=== PATIENT | female | born 1945 | race Caucasian/White ===

== ENCOUNTER 2016-04-30 16:25 | Emergency (ER) | payer MEDICARE ==
[~2016-04-30] VITALS: Ht 147.3 cm; Wt 41.0 kg
[~2016-04-30 16:25] MED LIST: ACET325S8 PO; AMBI10TA PO; CIPR500T4 PO; DOCU100S PO; FOLI1 PO; HYDR-3533 PO; METO25 PO; METR500I3 PO; NORC10TA2 PO; ONDA4 PO; PRAV10 PO; ST J81CH PO; XANA0.5T PO
[2016-04-30 16:28] VITALS: BP 136/62; PULSE 68; RESP 16; TEMP 98.4; O2SAT 98
[2016-04-30] MEDS ORDERED: ASPI81CH CHEW (17:33)
[2016-04-30] MEDS ORDERED: IMIT50TA PO (17:33)
[2016-04-30] MEDS ORDERED: ALPR.5 PO (17:33)
[2016-04-30] MEDS ORDERED: AMBI10TA PO (17:33)
[2016-04-30] MEDS ORDERED: PRAV20TA2 PO (17:33)
[2016-04-30] MEDS ORDERED: HYDR-3583 PO (17:33)
[2016-04-30] MEDS ORDERED: FOLI800T PO (17:33)
[2016-04-30] MEDS ORDERED: METO25TA3 PO (17:33)
--- NOTE | 2016-04-30 17:51 | PD ---
HPI Chief Complaint: Medication Refill Request Time Seen by Provider: 17:10 Travel History International Travel<30 days: No Contact w/Intl Traveler<30days: No Traveled to known affect area: No History of Present Illness HPI Patient is a 71-year-old female presented to emergency department for a refill of her hydrocodone. Patient states she has scoliosis and has been on hydrocodone 3 times daily for 10 years. Patient states that her primary doctor retired from the first of the year and she has been out of it for approximately 2 weeks. She went to her standards analyst who gave her a prescription for meloxicam. Patient denied any symptoms of withdrawal. She has no new complaints today, no new injuries. PFSH Past Medical History Arthritis: Yes (pheumatoid arthritis) Asthma: No Autoimmune Disease: No Blood Disorders: No Anxiety: Yes Depression: Yes Heart Rhythm Problems: Yes (irregular rhythm post-op period of aortic repair) Cancer: No Cardiac Catheterization: Yes Cardiovascular Problems: Yes (AAA) High Cholesterol: Yes Chest Pain: No Congestive Heart Failure: No COPD: No Cerebrovascular Accident: Yes (possible mini-stroke/stroke [id number] 11/2014) Diminished Hearing: No Endocrine: No Gastrointestinal Disorders: Yes GERD: Yes Genitourinary: No Hiatal Hernia: Yes Hypertension: Yes Immune Disorder: Yes (rheumatoid arthritis) Implanted Vascular Access Dvce: Yes Musculoskeletal: Yes Neurologic: Yes Psychiatric: Yes Reproductive: No Respiratory: Yes Migraines: Yes Seizures: No Sickle Cell Disease: No Sleep Apnea: No Ulcer: No : 2 Para: 2 Tubal Ligation: Yes Past Surgical History Abdominal Surgery: No AICD: No Arteriovenous Shunt: No Body Medical Devices: cardiac stent--PT DENIES Cardiac Surgery: Yes (Nov 2014 - reconstruction of aorta x3) Coronary Artery Bypass Graft: Yes Ear Surgery: No Endocrine Surgery: No Eye Surgery: No Genitourinary Surgery: No Gynecologic Surgery: No Insulin Pump: No Joint Replacement: No Oral Surgery: No Pacemaker: No Thoracic Surgery: Yes Tonsillectomy: Yes Other Surgery: Yes (rt hip abcess) Social History Alcohol Use: No Tobacco Use: No Substance Use: No Allergies-Medications (Allergen,Severity, Reaction): Coded Allergies: No Known Allergies (Unverified , 04/30/16) Reported Meds & Prescriptions Reported Meds & Active Scripts Active Reported Imitrex (Sumatriptan Succinate) 50 Mg Tab 50 Mg PO ONCE PRN If a satisfactory response has not been obtained at 2 hours, a second dose may be administered Xanax (Alprazolam) 0.5 Mg Tab 0.5 Mg PO Q8H PRN Ambien (Zolpidem Tartrate) 10 Mg Tab 10 Mg PO HS PRN Hydrocodone-Acetaminophen 10-325 mg Tab 1 Tab PO Q6H PRN Folic Acid 800 Mcg Tab 800 Mcg PO DAILY Pravastatin 20 Mg Tab 20 Mg PO DAILY Metoprolol Tartrate 25 Mg Tab 25 Mg PO BID Aspirin 81 Mg Chew 81 Mg CHEW DAILY Review of Systems Except as stated in HPI: all other systems reviewed are Neg Musculoskeletal: Positive: Arthralgias (back pain) Physical Exam Narrative GENERAL: Well-nourished, well-developed patient. SKIN: Warm and dry. HEAD: Normocephalic. EYES: No scleral icterus. No injection or drainage. NECK: Supple, trachea midline. No JVD or lymphadenopathy. CARDIOVASCULAR: Regular rate and rhythm without murmurs, gallops, or rubs. RESPIRATORY: Breath sounds equal bilaterally. No accessory muscle use. GASTROINTESTINAL: Abdomen soft, non-tender, nondistended. MUSCULOSKELETAL: No cyanosis, or edema. BACK: Nontender, scoliosis and kyphosis. No CVA tenderness. Data Data Last Documented VS Vital Signs Date Time Temp Pulse Resp B/P Pulse Ox O2 Delivery O2 Flow Rate FiO2 04/30/16 16:28 98.4 68 16 136/62 98 [facility] Medical Decision Making Medical Screen Exam Complete: Yes Emergency Medical Condition: No Medical Record Reviewed: Yes Interpretation(s) Vital Signs Date Time Temp Pulse Resp B/P Pulse Ox O2 Delivery O2 Flow Rate FiO2 04/30/16 16:28 98.4 68 16 136/62 98 Differential Diagnosis Arthritis versus scoliosis versus chronic pain versus other Narrative Course Patient is 71-year-old woman presenting to the emergency department for a refill of her hydrocodone. Patient states she takes 3 times a day for her scoliosis. She has been out for approximately 2 weeks per her report. Patient went to her standards analyst and was given meloxicam. She was advised that she will need to follow up with her standards analyst or with her new primary doctor at the beginning of May to get further refills of her chronic pain medication. Patient appears to be resting comfortably, she was encouraged to trial alternative therapies. She was offered a prescription for naproxen but declined. She was encouraged to return to emergency department for any new symptoms. Patient is stable for discharge. Diagnosis Primary Impression: Chronic back pain Qualified Code: M54.9 - Chronic back pain, unspecified back location, unspecified back pain laterality Referrals: Primary Care Physician Web Assistant Patient Instructions: General Instructions Additional Instructions: Follow-up with your primary doctor Follow-up with her standards analyst Return to emergency department for any new or worsening symptoms Med/Other Pt SpecificInfo: No Change to Meds Disposition: 01 DISCHARGE HOME Condition: Stable Fabrice,Payton GARCIA Apr 30, 2016 17:50
[2016-08-19] MEDS ORDERED: STOO100C PO (12:07)
== END 2016-04-30 18:14 | disposition home or self-care (01) ==
LOC: PHEFT 16:25
DX: M54.9 Dorsalgia, unspecified (principal); M06.9 Rheumatoid arthritis, unspecified; F41.8 Other specified anxiety disorders; E78.00 Pure hypercholesterolemia, unspecified; I10 Essential (primary) hypertension; Z76.0 Encounter for issue of repeat prescription
CPT/HCPCS: 99281

== ENCOUNTER → 2016-06-16 | Outpatient (CLI) | payer MEDICARE ==
[~2016-06-16] MED LIST changes: -ACET325S8 PO; +ALPR.5 PO; +ASPI81CH CHEW; -CIPR500T4 PO; +COLA100C3 PO; -DOCU100S PO; -FOLI1 PO; +FOLI800T PO; -HYDR-3533 PO; +HYDR-3583 PO; +IMIT50TA PO; +LISI2.5T3 PO; +MELO-1 PO; -METO25 PO; +METO25TA3 PO; -METR500I3 PO; +NITR100C4 PO; -NORC10TA2 PO; -ONDA4 PO; -PRAV10 PO; +PRAV20TA2 PO; -ST J81CH PO; +STOO100C PO; +TAMS5CAP PO; -XANA0.5T PO
[2016-06-16 13:53] LABS: ANION GAP 8 MEQ/L (5-15); AST (GOT) 11 U/L (15-37); BICARBONATE 26.3 MEQ/L (21.0-32.0); BLOOD UREA NITROGEN 27 MG/DL (7-18); CHLORIDE 103 MEQ/L (98-107); GLOMERULAR FILTRATION RATE 72 ML/MIN (>89); GLUCOSE,FASTING 78 MG/DL (74-99); POTASSIUM 4.4 MEQ/L (3.5-5.1); SODIUM (NA) 137 MEQ/L (136-145)
[2016-06-16 13:58] LABS: ALKALINE PHOSPHATASE 68 U/L (45-117); ALT (GPT) 10 U/L (10-53); LDL CHOLESTEROL 77 MG/DL (0-99); TOTAL BILIRUBIN ADULT 0.9 MG/DL (0.2-1.0)
== END ==
LOC: PLAB 08:47
PROVIDERS: ATTEND Internal Medicine Interventional Cardiology
DX: I10 Essential (primary) hypertension (principal); E78.2 Mixed hyperlipidemia; I71.2 Thoracic aortic aneurysm, without rupture; Z95.4 Presence of other heart-valve replacement
CPT/HCPCS: 36415; 80053; 80061

== ENCOUNTER 2016-06-22 18:49 | Emergency (ER) | payer MEDICARE ==
[~2016-06-22] VITALS: Ht 147.3 cm; Wt 41.5 kg
[~2016-06-22 18:49] MED LIST changes: -COLA100C3 PO; -LISI2.5T3 PO; -MELO-1 PO; -NITR100C4 PO; -STOO100C PO; -TAMS5CAP PO
[2016-06-22 18:52] VITALS: BP 202/99; PULSE 99; RESP 15; TEMP 98.7; O2SAT 98
[2016-06-22 20:04] VITALS: BP 188/116; PULSE 68; RESP 18; O2SAT 100
[2016-06-22] MEDS ORDERED: SODIUM CHLOR 0.9% 1000 ML INJ 1,000 ML IV SCH (20:08)
[2016-06-22] MEDS ORDERED: COLA100C3 PO (20:09)
[2016-06-22] MEDS ORDERED: LISI2.5T3 PO (20:09)
[2016-06-22] MEDS ORDERED: MELO-1 PO (20:09)
[2016-06-22 20:12] VITALS: O2SAT 100
--- NOTE | 2016-06-22 20:12 | PD ---
HPI Chief Complaint: Abdominal Pain Time Seen by Provider: 20:12 Travel History International Travel<30 days: No Contact w/Intl Traveler<30days: No Traveled to known affect area: No History of Present Illness HPI 71-year-old female with a history of hypertension, hyperlipidemia, chronic back pain, aortic valve replacement to see the emergency department for evaluation of epigastric abdominal pain radiating into the right upper quadrant. Patient states that her symptoms began after eating a hot dog around noon. States that she has a history of gastritis and this feels like a flareup of her gastritis. States that she has not had pain this bad in several years. States that she took Pepcid earlier without relief of symptoms. Describes the pain as a burning sharp pain. Symptoms are moderate in severity. Possibly aggravated with eating. Denies any alleviating factors. She complains of associated nausea but no vomiting. Denies fever, chills, diarrhea, constipation, chest pain, shortness of breath, lightheadedness, dizziness. Prior abdominal surgeries include abdominal aortic aneurysm stent. PCP Dr. Sarah. No other complaints. PFSH Past Medical History Arthritis: Yes (pheumatoid arthritis) Asthma: No Autoimmune Disease: No Blood Disorders: No Anxiety: Yes Depression: Yes Heart Rhythm Problems: Yes (irregular rhythm post-op period of aortic repair) Cancer: No Cardiac Catheterization: Yes Cardiovascular Problems: Yes High Cholesterol: Yes Chest Pain: No Congestive Heart Failure: No COPD: No Cerebrovascular Accident: Yes Diminished Hearing: No Endocrine: No Gastrointestinal Disorders: Yes GERD: Yes Genitourinary: No Hiatal Hernia: Yes Hypertension: Yes Immune Disorder: Yes (rheumatoid arthritis) Implanted Vascular Access Dvce: Yes Musculoskeletal: Yes Neurologic: Yes Psychiatric: Yes Reproductive: No Respiratory: Yes Migraines: Yes Seizures: No Sickle Cell Disease: No Sleep Apnea: No Ulcer: No Tetanus Vaccination: < 5 Years Influenza Vaccination: Yes : 2 Para: 2 Tubal Ligation: Yes Past Surgical History Abdominal Surgery: No AICD: No Arteriovenous Shunt: No Body Medical Devices: cardiac stent--PT DENIES Cardiac Surgery: Yes (Nov 2014 - reconstruction of aorta x3; valve replacement ) Coronary Artery Bypass Graft: Yes Ear Surgery: No Endocrine Surgery: No Eye Surgery: No Genitourinary Surgery: No Gynecologic Surgery: No Insulin Pump: No Joint Replacement: No Oral Surgery: No Pacemaker: No Thoracic Surgery: Yes Tonsillectomy: Yes Other Surgery: Yes (rt hip abcess) Social History Alcohol Use: No Tobacco Use: No Substance Use: No Allergies-Medications (Allergen,Severity, Reaction): Coded Allergies: No Known Allergies (Unverified , 06/22/16) Reported Meds & Prescriptions Reported Meds & Active Scripts Active Reported Lisinopril 2.5 Mg Tab 2.5 Mg PO DAILY Meloxicam 15 Mg Tab 15 Mg PO DAILY Colace (Docusate Sodium) 100 Mg Cap 100 Mg PO DAILY Imitrex (Sumatriptan Succinate) 50 Mg Tab 50 Mg PO ONCE PRN If a satisfactory response has not been obtained at 2 hours, a second dose may be administered Xanax (Alprazolam) 0.5 Mg Tab 0.5 Mg PO Q8H PRN Ambien (Zolpidem Tartrate) 10 Mg Tab 10 Mg PO HS PRN Hydrocodone-Acetaminophen 10-325 mg Tab 1 Tab PO TID PRN Folic Acid 800 Mcg Tab 800 Mcg PO DAILY Pravastatin 20 Mg Tab 20 Mg PO DAILY Metoprolol Tartrate 25 Mg Tab 25 Mg PO BID Aspirin 81 Mg Chew 81 Mg CHEW DAILY Review of Systems Except as stated in HPI: all other systems reviewed are Neg Physical Exam Narrative GENERAL: Well-nourished and well-developed pleasant female patient in no acute distress who is nontoxic appearing. SKIN: Warm and dry. HEAD: Normocephalic and atraumatic. EYES: No injection, drainage, or hyphema noted. PERRLA. EOMI. ENT: No nasal drainage noted. Oropharynx is clear. NECK: Supple and the trachea is midline. CARDIOVASCULAR: Regular rate and rhythm. RESPIRATORY: Breath sounds are equal bilaterally with no accessory muscle use, wheezing, rhonchi, or crackles. GASTROINTESTINAL: Epigastric tenderness to palpation. Mild tenderness to palpation of right lower quadrant. Negative Griffith's sign. Abdomen is soft and nondistended. No rebound tenderness or guarding. MUSCULOSKELETAL: No obvious deformities, swelling, cyanosis, or ecchymosis is present throughout the upper and lower extremities. Patient has full range of motion without any signs of neurovascular compromise. NEUROLOGICAL: Awake, alert, and oriented. Normal speech and gait. Cranial nerves are grossly intact. Data Data Last Documented VS Vital Signs Date Time Temp Pulse Resp B/P Pulse Ox O2 Delivery O2 Flow Rate FiO2 06/22/16 22:33 67 14 136/61 97 06/22/16 20:12 Room Air 06/22/16 18:52 98.7 Orders Complete Blood Count With Diff (06/22/16 20:08) Comprehensive Metabolic Panel (06/22/16 20:08) Lipase (06/22/16 20:08) Prothrombin Time / Inr (Pt) (06/22/16 20:08) Act Partial Throm Time (Ptt) (06/22/16 20:08) Iv Access Insert/Monitor (06/22/16 20:08) Ecg Monitoring (06/22/16 20:08) Oximetry (06/22/16 20:08) Ondansetron Inj (Zofran Inj) (06/22/16 20:15) Sodium Chlor 0.9% 1000 Ml Inj (Ns 1000 M (06/22/16 20:08) Sodium Chloride 0.9% Flush (Ns Flush) (06/22/16 20:15) Electrocardiogram (06/22/16 20:08) Al-Mag Hy-Si 40-40-4 Mg/Ml Liq (Mag-Al P (06/22/16 20:15) Lidocaine 2% Viscous (Xylocaine 2% Visco (06/22/16 20:15) Morphine Inj (Morphine Inj) (06/22/16 20:15) Ckmb (Isoenzyme) Profile (06/22/16 20:11) Troponin I (06/22/16 20:11) Chest, Single Ap (06/22/16 20:11) Labs Laboratory Tests Test 06/22/16 20:13 White Blood Count 8.8 TH/MM3 Red Blood Count 4.26 MIL/MM3 Hemoglobin 12.1 GM/DL Hematocrit 37.7 % Mean Corpuscular Volume 88.5 FL Mean Corpuscular Hemoglobin 28.3 PG Mean Corpuscular Hemoglobin 32.0 % Concent Red Cell Distribution Width 14.5 % Platelet Count 234 TH/MM3 Mean Platelet Volume 7.7 FL Neutrophils (%) (Auto) 69.6 % Lymphocytes (%) (Auto) 19.8 % Monocytes (%) (Auto) 7.6 % Eosinophils (%) (Auto) 2.1 % Basophils (%) (Auto) 0.9 % Neutrophils # (Auto) 6.2 TH/MM3 Lymphocytes # (Auto) 1.8 TH/MM3 Monocytes # (Auto) 0.7 TH/MM3 Eosinophils # (Auto) 0.2 TH/MM3 Basophils # (Auto) 0.1 TH/MM3 CBC Comment DIFF FINAL Differential Comment Prothrombin Time 10.7 SEC Prothromb Time International 1.0 RATIO Ratio Activated Partial 29.7 SEC Thromboplast Time Sodium Level 141 MEQ/L Potassium Level 3.6 MEQ/L Chloride Level 104 MEQ/L Carbon Dioxide Level 30.1 MEQ/L Anion Gap 7 MEQ/L Blood Urea Nitrogen 25 MG/DL Creatinine 0.76 MG/DL Estimat Glomerular Filtration 75 ML/MIN Rate Random Glucose 127 MG/DL Calcium Level 8.8 MG/DL Total Bilirubin 0.3 MG/DL Aspartate Amino Transf 10 U/L (AST/SGOT) Alanine Aminotransferase 8 U/L (ALT/SGPT) Alkaline Phosphatase 69 U/L Total Creatine Kinase 24 U/L Troponin I LESS THAN 0.02 NG/ML Total Protein 6.6 GM/DL Albumin 3.4 GM/DL Lipase 106 U/L [facility] Medical Decision Making Medical Screen Exam Complete: Yes Emergency Medical Condition: Yes Differential Diagnosis Gastritis versus GERD versus cholecystitis versus colitis versus diverticulitis Narrative Course 71-year-old female presents to the emergency department for evaluation of epigastric abdominal pain that began this afternoon after eating. Patient is afebrile. She is initially tachycardic with a heart rate of 99 bpm, heart rate is now normalized at 68 bpm. She is hypertensive with blood pressure 188/116. Otherwise vital signs within normal limits. She has epigastric tenderness to palpation and slight right lower quadrant tenderness to palpation. IV access is obtained, labs been drawn and sent. Patient is placed on cardiac telemetry and pulse oximetry monitoring. EKG shows sinus rhythm with no acute ST elevations or depressions. Patient is administered IV fluids, morphine, Zofran and GI cocktail. CBC is unremarkable. CMP is unremarkable. Troponin is less than 0.02. Course unremarkable. Chest x-rays negative for any acute abnormalities. Patient is reassessed after receiving fluids, morphine, Zofran and a GI cocktail and is reporting complete resolution of symptoms. States that she is feeling much better and is eager to go home. I had originally ordered a CAT scan of the abdomen and pelvis however due to the patient's history of gastritis and resolution of symptoms with treatment I think it is reasonable to forego this imaging at this time. She is advised to take Pepcid at home and follow-up with her PCP. The patient and family are comfortable with this plan. I discussed the case with my attending physician Dr. Martinez who is aware of the patients history, physical examination findings, and treatment plan. Diagnosis Primary Impression: Gastritis Qualified Code: K29.00 - Acute gastritis without hemorrhage, unspecified gastritis type Referrals: Primary Care Physician Patient Instructions: Gastritis (ED), General Instructions Additional Instructions: Take Pepcid at home as directed on the box. Follow-up with your Primary Care Physician. Return to the ED for any acute worsening of symptoms. Med/Other Pt SpecificInfo: No Change to Meds Disposition: 01 DISCHARGE HOME Condition: Stable Kaylie Falk Jun 22, 2016 20:12
[2016-06-22] MEDS ORDERED: LIDOCAINE VISCOUS 2% SOLN 15 ML UDC PO ONE (20:15)
[2016-06-22] MEDS ORDERED: MORPHINE SULFATE 4 MG/ML INJ IV PUSH ONE (20:15)
[2016-06-22] MEDS ORDERED: ALUMINUM/MAGNESIUM/SIMETH 30 ML CUP PO ONE (20:15)
[2016-06-22] MEDS ORDERED: SODIUM CHLORIDE 0.9% FLUSH 10 ML FLUSH IV FLUSH PRN (20:15)
[2016-06-22] MEDS ORDERED: ONDANSETRON HCL 4 MG/2 ML VIAL IVP ONE (20:15)
[2016-06-22 20:27] LABS: AUTOMATED NEUTROPHIL # 6.2 TH/MM3 (1.8-7.7); BASOPHIL # 0.1 TH/MM3 (0-0.2); BASOPHIL % 0.9 % (0.0-2.0); EOSINOPHIL # 0.2 TH/MM3 (0-0.4); EOSINOPHIL % 2.1 % (0.0-4.0); HEMATOCRIT 37.7 % (35.0-46.0); HEMO FLAGS DIFF FINAL; LYMPH % 19.8 % (9.0-44.0); LYMPHOCYTE # 1.8 TH/MM3 (1.0-4.8); MEAN CELL VOLUME 88.5 FL (80.0-100.0); MEAN CORPUSCULAR HEMOGLOBIN 28.3 PG (27.0-34.0); MONO % 7.6 % (0.0-8.0); NEUT % 69.6 % (16.0-70.0); PLATELET COUNT 234 TH/MM3 (150-450); RED BLOOD COUNT 4.26 MIL/MM3 (4.00-5.30); RED CELL DISTRIBUTION WIDTH 14.5 % (11.6-17.2); WHITE BLOOD COUNT 8.8 TH/MM3 (4.0-11.0)
[2016-06-22 20:37] LABS: APTT (PATIENT) 29.7 SEC (24.3-30.1); PROTHROMBIN TIME - PATIENT 10.7 SEC (9.8-11.6)
[2016-06-22 20:45] LABS: ANION GAP 7 MEQ/L (5-15); AST (GOT) 10 U/L (15-37); BICARBONATE 30.1 MEQ/L (21.0-32.0); BLOOD UREA NITROGEN 25 MG/DL (7-18); CHLORIDE 104 MEQ/L (98-107); GLOMERULAR FILTRATION RATE 75 ML/MIN (>89); POTASSIUM 3.6 MEQ/L (3.5-5.1); SODIUM (NA) 141 MEQ/L (136-145)
[2016-06-22 20:49] LABS: ALKALINE PHOSPHATASE 69 U/L (45-117); ALT (GPT) 8 U/L (10-53); TOTAL BILIRUBIN ADULT 0.3 MG/DL (0.2-1.0)
[2016-06-22 20:54] LABS: CREATINE KINASE 24 U/L (26-192)
--- NOTE | 2016-06-22 21:18 | RADRPT ---
EXAM DATE/TIME: 06/22/2016 20:14 [facility] COMPARISON: CHEST SINGLE AP, November 18, 2014, 13:50. INDICATIONS : Heart burn, abdomen pains. MEDICAL HISTORY : Myocardial infarction. Aneurysm, abdominal. SURGICAL HISTORY : CABG. Coronary artery stent. ENCOUNTER: Initial ACUITY: 2 days PAIN SCORE: 6/10 LOCATION: Bilateral chest FINDINGS: Postop median sternotomy with aortic stent graft placement. Previous aortic valve repair. Mild basila r atelectasis or scarring. No significant effusion. No pneumothorax. CONCLUSION: 1. Mild basilar atelectasis or scarring. Rivera Godinez MD on June 22, 2016 at 21:16 Board Certified Radiologist. This report was verified electronically.
[2016-06-22 22:33] VITALS: BP 136/61; PULSE 67; RESP 14; O2SAT 97
--- NOTE | 2016-06-23 10:35 | EKG ---
Date Performed: 06/22/2016 Time Performed: 20:18:50 PTAGE: 71 years EKG: Sinus rhythm LEFT ATRIAL ENLARGEMENT POSSIBLE ANTERIOR MYOCARDIAL INFARCTION MODERATE T-WAVE ABNORMALITY, CONSIDE R LATERAL ISCHEMIA ABNORMAL ECG NO PREVIOUS TRACING DOCTOR: Andrea Saez Interpretating Date/Time 06/23/2016 10:33:29
[2016-08-19] MEDS ORDERED: STOO100C PO (12:07)
== END 2016-06-22 23:12 | disposition home or self-care (01) ==
LOC: NEPC 18:49
DX: K29.70 Gastritis, unspecified, without bleeding (principal); E78.00 Pure hypercholesterolemia, unspecified; I10 Essential (primary) hypertension; M06.9 Rheumatoid arthritis, unspecified; Z95.2 Presence of prosthetic heart valve; I51.7 Cardiomegaly; R94.31 Abnormal electrocardiogram [ECG] [EKG]
CPT/HCPCS: 71010; 80053; 82550; 83690; 84484; 85025; 85610; 85730; 93005; 96374; 96375; 99284; J2270; J2405; J7030

== ENCOUNTER → 2016-08-19 | Outpatient (CLI) | payer MEDICARE ==
[~2016-08-19] MED LIST changes: +COLA100C3 PO; +LISI2.5T3 PO; +MELO-1 PO; +NITR100C4 PO; +STOO100C PO; +TAMS5CAP PO
[2016-08-19 13:15] LABS: AUTOMATED NEUTROPHIL # 2.9 TH/MM3 (1.8-7.7); BASOPHIL # 0.1 TH/MM3 (0-0.2); BASOPHIL % 1.1 % (0.0-2.0); EOSINOPHIL # 0.2 TH/MM3 (0-0.4); EOSINOPHIL % 3.3 % (0.0-4.0); HEMATOCRIT 37.5 % (35.0-46.0); HEMO FLAGS DIFF FINAL; LYMPH % 35.7 % (9.0-44.0); LYMPHOCYTE # 1.9 TH/MM3 (1.0-4.8); MEAN CELL VOLUME 88.3 FL (80.0-100.0); MEAN CORPUSCULAR HEMOGLOBIN 28.4 PG (27.0-34.0); MEAN CORPUSCULAR HGB CONC 32.1 % (32.0-36.0); MONO % 6.6 % (0.0-8.0); NEUT % 53.3 % (16.0-70.0); PLATELET COUNT 233 TH/MM3 (150-450); RED BLOOD COUNT 4.25 MIL/MM3 (4.00-5.30); RED CELL DISTRIBUTION WIDTH 15.7 % (11.6-17.2); WHITE BLOOD COUNT 5.4 TH/MM3 (4.0-11.0)
--- NOTE | 2016-08-19 13:28 | RADRPT ---
EXAM DATE/TIME: 08/19/2016 13:06 [facility] COMPARISON: CHEST SINGLE AP, June 22, 2016, 20:14. INDICATIONS : Evaluate for communicable diseases, pneumonia, pneumothorax, Pre op for hysterectomy on 08-21-16 MEDICAL HISTORY : Myocardial infarction. Congestive heart failure. SURGICAL HISTORY : CABG. Aneryusm repair ENCOUNTER: Initial ACUITY: 1 day PAIN SCORE: 0/10 LOCATION: Bilateral chest FINDINGS: PA and lateral views of the chest demonstrate the lungs to be symmetrically aerated without evidence of mass, infiltrate or effusion. The lungs are hyperaerated. The cardiomediastinal contours are stab le. There is evidence of previous cardiothoracic surgery as well as stenting of the thoracic aorta. T he bony structures are stable.. CONCLUSION: No acute intrathoracic disease. Humberto Monique MD on August 19, 2016 at 13:25 Board Certified Radiologist. This report was verified electronically.
[2016-08-19 13:39] LABS: POTASSIUM 3.6 MEQ/L (3.5-5.1)
--- NOTE | 2016-08-20 09:39 | EKG ---
Date Performed: 08/19/2016 Time Performed: 12:20:52 PTAGE: 71 years EKG: Sinus rhythm WITH SHORT MI INTERVAL LEFT ATRIAL ENLARGEMENT ST DEVIATION AND MODERATE T-WAVE ABNORMALITY, CONSIDE R ANTEROLATERAL ISCHEMIA ABNORMAL ECG PREVIOUS TRACING : 06/22/2016 20.18 DOCTOR: Donavon Hale Interpretating Date/Time 08/20/2016 09:37:55
[2016-08-20 11:40] LABS: BLOOD, URINE NEG (NEG); GLUCOSE,URINE NEG (NEG); KETONE, URINE NEG (NEG); MUCUS URINE FEW /lpf (OCC); NITRITE,URINE NEG (NEG); PH, URINE 5.5 (5.0-8.5); SQUAMOUS EPITHELIAL CELL URINE <1 /hpf (0-5); URINE COLOR YELLOW (YELLW/STRAW)
== END ==
LOC: CPRE 11:33
PROVIDERS: ATTEND Obstetrics & Gynecology
DX: Z01.810 Encounter for preprocedural cardiovascular examination (principal); Z01.811 Encounter for preprocedural respiratory examination; Z01.812 Encounter for preprocedural laboratory examination; N81.89 Other female genital prolapse; R94.31 Abnormal electrocardiogram [ECG] [EKG]
CPT/HCPCS: 36415; 71020; 80048; 81001; 85025; 86077; 86850; 86870; 86900; 86901; 86902; 86920; 86922; 93005

== ENCOUNTER 2016-08-21 05:28 | Observation (INO) | payer MEDICARE ==
--- NOTE | 2016-08-19 10:58 | MH ---
cc: ERICK ZAYAS DATE OF ADMISSION 08/21/2016 DATE OF 1945 SCHEDULED PROCEDURE Total vaginal hysterectomy, bilateral salpingo-oophorectomy, anterior repair with transobturator tape using Solyx, possible posterior repair, possible enterocele repair. INDICATIONS Third degree bladder prolapse with urinary retention, third degree uterine prolapse and chronic pelvic cramping. HISTORY OF PRESENT CONDITION The patient is a somewhat frail 71-year-old white female with significant kyphosis and scoliosis. she has been an established patient of the practice with known prolapse for many years, but in the last six months, the pelvic pressure has become unacceptable to her and she feels the potential risks of surgery are weighed by the potential benefits. She has had preoperative cardiac clearance by Dr. Zelaya. This was indicated because she has had a repair of a thoracic aortic aneurysm without rupture and an aortic valve replacement using a biologic valve so that she does not need to be on any anticoagulants. She also has a degree of mild hypertension, mild hyperlipidemia and a known right carotid bruit. MEDICATIONS Her medications are: 1. Ambien 10 at night 2. Aspirin 81 daily which she has stopped 3. Atorvastatin 10 daily 4. Folic acid 1 mg daily 5. She takes [place] 10/325 up to three times a day for her back Pain. 6. She takes lisinopril 5 mg daily 7. Metoprolol 25 mg one b.i.d. 8. Xanax XR 0.5 extended-release p.r.n. anxiety. [employer]IND[employer] WORK[employer] She has had two children both vaginally and at least one was a difficult . She has had a tubal ligation in 1981. SOCIAL HISTORY She is a former smoker. She does drink a little caffeine. No alcohol. Does not exercise on a regular basis. FAMILY HISTORY Otherwise noncontributory other than mother had hypertension. ALLERGIES She has no allergies. PHYSICAL EXAM Her weight is 90. Her height is 4/9. Her blood pressure is 136/78. GENERAL: She has a slim white female who has significant kyphosis and some scoliosis. LUNGS: Her lungs are clear to auscultation and percussion. HEART: Rate and rhythm are regular; 4/6 holosytolic murmur consistent with biologic valve, no heaves or thrills. BREASTS: Breast exam is without dominant mass, nipple discharge, skin retraction or adenopathy. ABDOMEN: The abdomen is slightly protuberant she has no hepatosplenomegaly. No CVA tenderness. PELVIC: Perineum is not overly atrophic. Q-tip test is very positive. The cervix is above the bladder, but both descends when she is standing with Valsalva. The uterus is tiny and this was confirmed on ultrasound. Ovaries and tubes are tiny. She has a minimal rectocele. She has never had an abnormal Pap smear and an endometrial biopsy was not performed as she has had no spotting whatsoever. EXTREMITIES: Shows some mild varicosities. 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 PLAN To proceed with TVH/BSO, anterior repair and Solyx sling and additional procedures as indicated. The risks, benefits, and expectations including risk of blood clots, risk of cardiovascular events have all been discussed in detail. She has signed consents and she is scheduled for morning. MD RUSSELL Garzon/ROMARIO /10:27 AM /10:41 AM MICHELLE
[~2016-08-21] VITALS: Ht 147.3 cm; Wt 48.6 kg
[~2016-08-21 05:28] MED LIST changes: -COLA100C3 PO; -MELO-1 PO; -NITR100C4 PO; -TAMS5CAP PO
[2016-08-21] MEDS ORDERED: LACTATED RINGER'S 1000 ML IV PRN (05:45)
[2016-08-21] MEDS ORDERED: CHLORHEXIDINE GLUCONATE 2 % 1 PACK (2 CLOTHS) TOPICAL PRN (05:45)
[2016-08-21] MEDS ORDERED: INSULIN HUMAN REGULAR 1,000 UNITS/10 ML VIAL SQ PRN (05:45)
[2016-08-21] MEDS ORDERED: POVIDONE IODINE 5% (ANTISEPSIS KIT) 4 APPLICATIONS EACH NARE PRN (05:45)
[2016-08-21] MEDS ORDERED: SODIUM CHLORID 0.9% 500 ML IV PRN (05:45)
[2016-08-21] MEDS ORDERED: METOPROLOL TARTRATE 25 MG TAB PO PRN (05:45)
[2016-08-21] MEDS ORDERED: ceFAZolin 1,000 MG/NS 100 ML IV SCH ×2 (06:00)
[2016-08-21 06:14] VITALS: BP 152/88; PULSE 53; RESP 18; TEMP 97.5; O2SAT 99
[2016-08-21] MEDS ORDERED: DEXAMETHASONE SOD PHOS 4 MG/ML VIAL ONE (07:17)
[2016-08-21] MEDS ORDERED: MIDAZOLAM HCL 2 MG/2 ML VIAL ONE (07:17)
[2016-08-21] MEDS ORDERED: ACETAMINOPHEN 1000 MG/100 ML VIAL IV ONE (07:18)
[2016-08-21] MEDS ORDERED: fentaNYL CITRATE 250 MCG/5 ML AMP ONE (07:22)
[2016-08-21] MEDS ORDERED: LIDOCAINE 1%/EPINEPHrine 1:100,000 SOLN 50 ML VIAL INFIL ONE (08:06)
[2016-08-21] MEDS ORDERED: PROPOFOL 200 MG/20 ML AMP IV ONE (08:18)
[2016-08-21] MEDS ORDERED: ONDANSETRON HCL 4 MG/2 ML VIAL IV PUSH ONE (08:19)
[2016-08-21] MEDS ORDERED: NEOSTIGMINE 3 MG/3 ML SYR IV ONE (08:19)
[2016-08-21] MEDS ORDERED: ePHEDrine/NS 25 MG/5 ML SYR IV ONE (08:19)
[2016-08-21] MEDS ORDERED: ESTROGENS CONJUGATED VAG CREA 15 APPL/30 GM TUBE ONE (09:19)
[2016-08-21] MEDS ORDERED: ZOLPIDEM TARTRATE 5 MG TAB PO PRN (10:15)
[2016-08-21] MEDS ORDERED: HYDROmorphone HCL PF 1 MG/ML VIAL IVP PRN (10:15)
[2016-08-21] MEDS ORDERED: diphenhydrAMINE HCL 25 MG CAP PO PRN (10:15)
[2016-08-21] MEDS ORDERED: ONDANSETRON HCL 4 MG/2 ML VIAL IVP PRN (10:15)
[2016-08-21] MEDS ORDERED: SODIUM CHLORIDE 0.9% FLUSH 10 ML FLUSH IV FLUSH PRN (10:15)
[2016-08-21] MEDS ORDERED: IBUPROFEN 600 MG TAB PO PRN (10:15)
[2016-08-21] MEDS: LACTATED RINGER'S 1000 ML INJ 1,000 ML IV SCH ×2 (10:15→19:00)
[2016-08-21] MEDS ORDERED: oxyCODONE/ACETAMINOPHEN 5 MG/325 MG TAB PO PRN (10:15)
[2016-08-21] MEDS ORDERED: PILL SPLITTER OTHER PRN (11:00)
[2016-08-21] MEDS ORDERED: *morphine SULFATE 8 MG/ML PERIprocedure ONLY ONE (11:13)
[2016-08-21] MEDS ORDERED: *diphenhydrAMINE HCL 50 MG/ML VIAL PERIprocedural Use ONLY ONE (11:19)
[2016-08-21] MEDS ORDERED: *HYDROmorphone PF 1 MG VIAL PERIprocedural Use ONLY ONE ×2 (11:29→14:21)
[2016-08-21] MEDS ORDERED: *ONDANSETRON 4 MG VIAL PERIprocedural Use ONLY ONE (11:33)
[2016-08-21 15:30] VITALS: BP 139/62; PULSE 60; RESP 20; TEMP 96.4; O2SAT 94
[2016-08-21] MEDS: oxyCODONE/ACETAMINOPHEN 5 MG/325 MG TAB PO PRN ×2 (15:48→20:04)
--- NOTE | 2016-08-21 18:44 | PD.OP ---
Operative Report Date of Surgery: Aug 21, 2016 Preoperative Diagnosis: Large cystocele, uterine prolapse, rectocele, UVA descent and retention Postoperative Diagnosis: same Procedure: TVHBSO TOT with solyx A/P repair enterocele repair cystourethroscopy Anesthesia: GET Surgeon: Telma Armando Applications Developer(s): brodie silva Operation and Findings: Telma Ortega MD Aug 21, 2016 18:44
[2016-08-21] MEDS: LORazepam 0.5 MG TAB PO PRN (20:03)
[2016-08-21] MEDS: SODIUM CHLORIDE 0.9% FLUSH 10 ML FLUSH IV FLUSH SCH (20:03)
[2016-08-21 20:04] VITALS: BP 119/58; PULSE 62; RESP 16; TEMP 96.9; O2SAT 99
[2016-08-21] MEDS: DOCUSATE SODIUM 100 MG CAP PO SCH (20:04)
[2016-08-22] VITALS (9 sets, daily range): BP systolic 116–141; BP diastolic 58–78; PULSE 54–64; RESP 15–18; TEMP 97–98.3; O2SAT 93–97
[2016-08-22] MEDS: oxyCODONE/ACETAMINOPHEN 5 MG/325 MG TAB PO PRN ×5 (01:14→18:54)
[2016-08-22] MEDS: LACTATED RINGER'S 1000 ML INJ 1,000 ML IV SCH ×3 (03:50→18:12)
[2016-08-22] MEDS ORDERED: TRIAMCINOLONE ACETONIDE 0.1% CREAM 15 GM TOPICAL ONE (08:00)
--- NOTE | 2016-08-22 08:03 | HHI.PR ---
Subjective Remarks Doing well, pain is well controlled, eating well. mild discomfort in abdomen Objective Vital Signs Vital Signs Date Time Temp Pulse Resp B/P Pulse Ox O2 Delivery O2 Flow Rate FiO2 08/22/16 04:00 98.0 63 15 136/60 97 08/22/16 01:11 95 08/22/16 00:00 98.0 62 15 123/65 96 08/21/16 20:04 96.9 62 16 119/58 99 08/21/16 15:30 96.4 60 20 139/62 94 08/21/16 13:00 55 12 135/62 96 Room Air 08/21/16 12:00 98.1 56 12 138/61 94 Room Air 08/21/16 11:30 54 14 161/69 94 Room Air 08/21/16 11:00 59 26 148/63 97 Room Air 08/21/16 10:45 53 14 146/66 94 Room Air 08/21/16 10:30 52 14 155/67 99 Nasal Cannula 2 08/21/16 10:15 54 14 150/65 100 Nasal Cannula 2 08/21/16 10:00 64 12 157/67 97 Nasal Cannula 2 08/21/16 09:58 96.9 64 17 159/69 97 Nasal Cannula 2 I/O 08/21/16 08/21/16 08/21/16 08/22/16 08/22/16 08/22/16 07:00 15:00 23:00 07:00 15:00 23:00 Intake Total 1238 ml 240 ml Output Total 850 ml 800 ml Balance 388 ml 240 ml -800 ml Intake Oral 240 ml IV Total 438 ml Other 800 ml Output Urine Total 850 ml 800 ml # Sanitary Pads 1 Pads 1 Pads Objective Remarks Chest is clear, regular rate and rhythm. Abdomen is soft and non-distended. perineum is dry No pack Ext no CCE. A/P Assessment and Plan Post Op Day 1 Doing well Home today if passes voiding trial with no catheter OTherwise keep extra day or send home with leg bag and instructions five days macrobid flomax Telma Armando MD Aug 22, 2016 08:03
[2016-08-22] MEDS ORDERED: NITR100C4 PO (08:06)
[2016-08-22] MEDS ORDERED: TAMS5CAP PO (08:06)
--- NOTE | 2016-08-22 08:06 | HHI.DCPOC ---
Discharge Care Plan Report Symptoms to Your Doctor -Temperature above 100.5 degrees -Redness, of incision or excessive or foul smelling drainage -Unusual pain or calf pain -Increased vaginal bleeding -Painful or difficulty urinating -Feelings of extreme sadness or anxiety after 2 weeks Goals to Promote Your Health * To prevent worsening of your condition and complications * To maintain your health at the optimal level Directions to Meet Your Goals Take your medications as prescribed Follow your dietary instruction Follow activity as directed Ensure plenty of rest for recovery Drink fluids for hydration Keep your appointments as scheduled Take your immunizations and boosters as scheduled If your symptoms worsen call your PCP, if no PCP go to Urgent Care Center or Emergency Room Smoking is Dangerous to Your Health. Avoid second hand smoke Call the 24-hour crisis hotline for domestic abuse at Telma Armando MD Aug 22, 2016 08:06
[2016-08-22 08:30] LABS: BASOPHIL # 0.1 TH/MM3 (0-0.2); BASOPHIL % 0.7 % (0.0-2.0); EOSINOPHIL % 0.6 % (0.0-4.0); HEMATOCRIT 28.1 % (35.0-46.0); HEMO FLAGS DIFF FINAL; LYMPH % 25.1 % (9.0-44.0); LYMPHOCYTE # 1.9 TH/MM3 (1.0-4.8); MEAN CELL VOLUME 86.7 FL (80.0-100.0); MEAN CORPUSCULAR HEMOGLOBIN 29.1 PG (27.0-34.0); MEAN CORPUSCULAR HGB CONC 33.6 % (32.0-36.0); MONO % 8.6 % (0.0-8.0); PLATELET COUNT 196 TH/MM3 (150-450); RED BLOOD COUNT 3.24 MIL/MM3 (4.00-5.30); RED CELL DISTRIBUTION WIDTH 15.6 % (11.6-17.2); WHITE BLOOD COUNT 7.7 TH/MM3 (4.0-11.0)
[2016-08-22] MEDS: SODIUM CHLORIDE 0.9% FLUSH 10 ML FLUSH IV FLUSH SCH (08:39)
[2016-08-22] MEDS: NITROFURANTOIN MONOHYD MACROCR 100 MG CAP PO SCH ×2 (08:45→17:58)
[2016-08-22] MEDS: DOCUSATE SODIUM 100 MG CAP PO SCH ×2 (08:45→21:20)
[2016-08-22] MEDS: TAMSULOSIN HCL 0.4 MG CAP PO SCH (08:45)
[2016-08-22 09:23] LABS: BICARBONATE 30.3 MEQ/L (21.0-32.0); POTASSIUM 3.8 MEQ/L (3.5-5.1)
[2016-08-22] MEDS ORDERED: SIMETHICONE 80 MG CHEWABLE TAB CHEW PRN (16:45)
[2016-08-22] MEDS ORDERED: ZOLPIDEM TARTRATE 5 MG TAB PO PRN (16:45)
--- NOTE | 2016-08-22 16:45 | HHI.PR ---
Subjective Remarks mild gas pain. could not void and jenkins back would like to rest here tonight Objective Vital Signs Vital Signs Date Time Temp Pulse Resp B/P Pulse Ox O2 Delivery O2 Flow Rate FiO2 08/22/16 11:55 98.3 64 18 116/58 96 08/22/16 09:24 97 08/22/16 08:00 97.0 54 18 127/78 94 08/22/16 04:00 98.0 63 15 136/60 97 08/22/16 01:11 95 08/22/16 00:00 98.0 62 15 123/65 96 08/21/16 20:04 96.9 62 16 119/58 99 I/O 08/21/16 08/21/16 08/21/16 08/22/16 08/22/16 08/22/16 07:00 15:00 23:00 07:00 15:00 23:00 Intake Total 1238 ml 240 ml 2152 ml Output Total 850 ml 800 ml 950 ml Balance 388 ml 240 ml -800 ml 1202 ml Intake Oral 240 ml 240 ml IV Total 438 ml 1912 ml Other 800 ml Output Urine Total 850 ml 800 ml 950 ml # Sanitary Pads 1 Pads 1 Pads 1 Pads Result Diagram: 08/22/16 0726 08/22/16 07 Objective Remarks Chest is clear, regular rate and rhythm. Abdomen is soft and non-distended. perineum is dry No pack Ext no CCE. not distended A/P Assessment and Plan Post Op Day 1 Doing well kandace repeat voiding trial in Telma Mclaughlin MD Aug 22, 2016 16:45
--- NOTE | 2016-08-22 19:52 | MP ---
cc: ERICK ZAYAS DATE OF SURGERY: 08/22/2015. PREOPERATIVE DIAGNOSIS: 1. Third-degree cystourethrocele. 2. Second-degree uterine prolapse. 3. Second-degree rectocele. POSTOPERATIVE DIAGNOSIS: 1. Third-degree cystourethrocele. 2. Second-degree uterine prolapse. 3. Second-degree rectocele. OPERATIVE PROCEDURE PERFORMED: 1. Total vaginal hysterectomy. 2. Bilateral salpingo-oophorectomy. 3. Transobturator tape placement using the Solex System. 4. Anterior and posterior repair. 5. Enterocele obliteration. 6. Cystourethroscopy. SURGEON: Erick Zayas MD. ANESTHESIA: General endotracheal anesthesia. SPECIMEN REMOVED: Uterus, tubes and ovaries. ESTIMATED BLOOD LOSS: Less than 100 cc. FINDINGS: Examination under anesthesia revealed a fairly large cystocele with a very tiny uterus and a moderate rectocele. Upon entering the peritoneal cavity, the uterus was confirmed to be very small. The ovaries were tiny but accessible. An enterocele repair was performed and then an unremarkable Transobturator tape, cystoscopy was performed and showed no iatrogenic injury or intrinsic pathology and no suture, cystotomy or tape was seen in the bladder. ESTIMATED BLOOD LOSS: Less than 100 mL. COUNTS: Sponge, instrument, needle counts were correct. DESCRIPTION OF THE PROCEDURE IN DETAIL: The patient was seen in preop holding. Her permit was reviewed with her. She received 1 gram of Ancef. She was taken to the operating room, placed under general endotracheal anesthesia in the dorsal lithotomy position. She had sequential stockings on prior to induction of anesthesia. She was prepped and draped in the usual sterile fashion. The Bhatia was placed in a sterile fashion. A time-out was performed with all in attendance. Examination under anesthesia was performed and then the cervix was grasped with a single-tooth tenaculum, placed on traction and it was circumcised with the Bovie on cutting after being instilled with Marcaine and epinephrine. The anterior and the posterior cul-de-sacs were entered sharply and then the uterosacral on the patient's left was clamped, cut and suture ligated and then on the right; both these sutures were tagged. Successive pedicles were clamped, cut and suture ligated until the uterus was removed from the operative site. Then Babcocks were used to gently grasp the ovary and tube, first on the left which was clamped with a Marilu clamp, excised and then free tied and suture ligated. This was repeated on the opposite side without difficulty. There was no bleeding from the peritoneal edges or pedicles. An enterocele obliteration was performed using a pursestring suture and then the uterosacral ligaments were plicated with the tagged sutures from the uterosacrals. Then the vagina was closed in a running interlocking fashion from twelve to six. Attention was then paid to the urethra where an Allis was placed 1 cm below the urethra and another at the apex of the earlier suture line. The Bovie on cutting was used then to incise the midline vaginal mucosa after hydrodissection with Marcaine with epinephrine and then the vaginal mucosa was dissected off the underlying bladder and urethra. When the dissection was considered adequate, the Solex System was used to waters the urogenital diaphragm on the right side with the acorn and then on the left side leaving the Solex Tape against the urethra but without any tension. There was some brisk bleeding on the right side and packing was placed. A Bhatia catheter was removed and then cystoscopy was done with a 30 degree lens. It was difficult to identify ADDENDUM On the tape was in place and the cystoscopy performed and no injury noted, the Bhatia catheter was replaced in the bladder and then the mucosa was trimmed and closed with a running interlocking fashion. The bladder had been plicated slightly and a couple of mattress sutures to prevent ____ of the urethrovesical angle. At this point, the posterior vaginal vault was grasped with an Allis's, infiltrated with Marcaine with epinephrine and then the Bovie was used in the midline to take the vaginal mucosa off the attenuated rectovaginal septum. Once the tissue was pushed laterally to satisfaction, the redundant rectovaginal tissue was plicated and remnants of fascia from either side were brought together to create some strength in the septum and then the vaginal mucosa was trimmed and closed with a running interlocking suture. A classic perineoplasty was performed and then the vagina was filled with Premarin cream. Erick Zayas MD P[facility]/JCJae /9:59 AM /9:43 AM
[2016-08-22] MEDS: LORazepam 0.5 MG TAB PO PRN (21:21)
[2016-08-23] VITALS: BP 175/81; PULSE 66; RESP 16; TEMP 98; O2SAT 94
[2016-08-23 01:00] VITALS: BP 139/73; PULSE 75; RESP 18; O2SAT 97
[2016-08-23 04:00] VITALS: BP 198/86; PULSE 71; RESP 16; TEMP 97.5; O2SAT 95
[2016-08-23] MEDS: oxyCODONE/ACETAMINOPHEN 5 MG/325 MG TAB PO PRN (04:17)
[2016-08-23] MEDS: SODIUM CHLORIDE 0.9% FLUSH 10 ML FLUSH IV FLUSH SCH (04:19)
[2016-08-23] MEDS ORDERED: TAMSULOSIN HCL 0.4 MG CAP PO SCH (06:00)
[2016-08-23 08:00] VITALS: BP 171/78; PULSE 57; RESP 18; TEMP 97.6; O2SAT 93
[2016-08-23] MEDS: TAMSULOSIN HCL 0.4 MG CAP PO SCH (08:25)
[2016-08-23] MEDS: DOCUSATE SODIUM 100 MG CAP PO SCH (08:26)
[2016-08-23] MEDS: NITROFURANTOIN MONOHYD MACROCR 100 MG CAP PO SCH (08:29)
--- NOTE | 2016-08-23 08:42 | HHI.PR ---
Subjective Remarks POD 2 Doing well, pain is well controlled, eating well. voided easily this am and ready for discharge Objective Vital Signs Vital Signs Date Time Temp Pulse Resp B/P Pulse Ox O2 Delivery O2 Flow Rate FiO2 08/23/16 04:00 97.5 71 16 198/86 95 08/23/16 01:00 75 18 139/73 97 08/23/16 00:00 98.0 66 16 175/81 94 08/22/16 20:00 97.6 60 16 134/72 96 08/22/16 19:40 95 08/22/16 16:00 98.2 63 17 141/67 93 08/22/16 11:55 98.3 64 18 116/58 96 08/22/16 09:24 97 I/O 08/22/16 08/22/16 08/22/16 08/23/16 08/23/16 08/23/16 07:00 15:00 23:00 07:00 15:00 23:00 Intake Total 2152 ml 240 ml Output Total 800 ml 950 ml 1175 ml 1750 ml Balance -800 ml 1202 ml -1175 ml -1510 ml Intake Oral 240 ml 240 ml IV Total 1912 ml Output Urine Total 800 ml 950 ml 1175 ml 1750 ml # Sanitary Pads 1 Pads 1 Pads Result Diagram: 08/22/16 0726 08/22/16 07 Objective Remarks Chest is clear, regular rate and rhythm. Abdomen is soft and non-distended. perineum is dry No pack Ext no CCE. not distended A/P Assessment and Plan Post Op Day 2 home with macrobid timed voids RTO this week Telma Armando MD Aug 23, 2016 08:41
== END 2016-08-23 09:39 | disposition home or self-care (01) ==
LOC: HSDC 05:28 → HSDI 10:16 → HOCA 15:33
PROVIDERS: ADMIT Obstetrics & Gynecology; ATTEND Obstetrics & Gynecology
DX: N81.3 Complete uterovaginal prolapse (principal); Z87.891 Personal history of nicotine dependence; Z79.899 Other long term (current) drug therapy; N81.5 Vaginal enterocele; N81.6 Rectocele
CPT/HCPCS: 00860; 00942; 57265; 57288; 58263; 80048; 85025; 88307; 96374; 96375; C1771; G0378; J0131; J0690; J1100; J1170; J1200; J2250; J2270; J2405; J2710; J3010; J7120; 88305

== ENCOUNTER → 2016-12-08 | Outpatient (CLI) | payer MEDICARE ==
[~2016-12-08] MED LIST changes: +NITR100C4 PO; +TAMS5CAP PO
[2016-12-08 12:50] LABS: ALT (GPT) 7 U/L (10-53); ANION GAP 8 MEQ/L (5-15); AST (GOT) 6 U/L (15-37); BICARBONATE 28.2 MEQ/L (21.0-32.0); BLOOD UREA NITROGEN 40 MG/DL (7-18); CHLORIDE 104 MEQ/L (98-107); GLOMERULAR FILTRATION RATE 72 ML/MIN (>89); GLUCOSE,FASTING 69 MG/DL (74-99); POTASSIUM 4.7 MEQ/L (3.5-5.1); SODIUM (NA) 140 MEQ/L (136-145)
[2016-12-08 12:53] LABS: ALKALINE PHOSPHATASE 87 U/L (45-117); HDL CHOLESTEROL 70.5 MG/DL (40.0-60.0); LDL CHOLESTEROL 71 MG/DL (0-99); TOTAL BILIRUBIN ADULT 0.6 MG/DL (0.2-1.0)
== END ==
LOC: PLAB 10:05
PROVIDERS: ATTEND Internal Medicine Interventional Cardiology
DX: E78.2 Mixed hyperlipidemia (principal); Z79.899 Other long term (current) drug therapy
CPT/HCPCS: 36415; 80053; 80061; 82248; 82550